=== PATIENT | female | born 1970 | race Two or more races ===

== ENCOUNTER 2016-10-16 17:26 | Emergency (ER) | payer SELFPAY ==
[~2016-10-16] VITALS: Ht 162.6 cm; Wt 77.1 kg
[2016-10-16 17:39] VITALS: BP 106/67
--- NOTE | 2016-10-16 18:08 | Emergency Room Report ---
History of Present Illness General Chief Complaint: Skin Rash/Abscess Source: Patient Present Illness HPI 46-year-old female presents emergency department complaining of multiple insect bites on the inner left thigh and upper or right extremity x2 days. Patient reports itching in addition to burning and progression of pain. Patient states there is now a significant redness surrounding the lesions. Patient denies nausea vomiting fevers or chills. Patient denies recent travel or ill contacts. Patient is up-to-date with tetanus. Denies CP, Palpitations, LOC, AMS, dizziness, Changes in Vision, Sensation, paresthesias, or a sudden severe headache. Allergies: Coded Allergies: No Known Allergies (Unverified , 10/16/16) Patient History Past Medical History: see triage record Past Surgical History: none Pertinent Family History: none Now: No Immunizations: UTD Reviewed Nursing Documentation: PMH: Agreed, PSxH: Agreed Nursing Documentation-PMH Past Medical History: No Stated History Review of Systems All Other Systems: negative except mentioned in HPI Physical Exam Vital Signs Date Time Temp Pulse Resp B/P Pulse Ox O2 Delivery O2 Flow Rate FiO2 10/16/16 17:39 98.2 93 20 106/67 99 Room Air Sp02 EP Interpretation: reviewed, normal General Appearance: no apparent distress, alert, GCS 15, non-toxic Head: normocephalic, atraumatic Eyes: bilateral eye PERRL, bilateral eye normal inspection ENT: hearing grossly normal, normal pharynx, no angioedema, normal voice Neck: full range of motion, supple/symm/no masses Respiratory: chest non-tender, lungs clear, normal breath sounds, speaking full sentences Cardiovascular #1: regular rate, rhythm, no edema Musculoskeletal: back normal, gait/station normal, normal range of motion, non- tender Neurologic: alert, oriented x3, responsive, motor strength/tone normal, sensory intact, speech normal Psychiatric: judgement/insight normal, memory normal, mood/affect normal, no suicidal/homicidal ideation Skin: normal color, warm/dry, well hydrated, rash - multiple lesions less than 0.5cm each on the inner left thigh and upper right extremity, significant surrounding erythema and increased temperature to palpation of the inner thigh consistent with insect bites, localized reaction, and secondary cellulitis Lymphatic: no adenopathy Medical Decision Making PA Attestation Dr. Stacy is my supervising Physician whom patient management has been discussed with. Diagnostic Impression: Primary Impression: Insect bites of multiple sites, infected Additional Impression: Cellulitis Qualified Codes: L03.116 - Cellulitis of left lower limb ER Course Pt. presents to the ED c/o pain, swelling, and erythema of multiple sites of the left inner thigh, and right upper arm. no fevers or chills. Ddx considered but are not limited to cellulitis, insect bites, abscess, scabies. Vital signs: are WNL, pt. is afebrile H&PE are most consistent with insect bites with secondary cellulitis. ORDERS: none required at this time, the diagnosis is clinical ED INTERVENTIONS: -650mg tylenol PO DISCHARGE: At this time pt. is stable for d/c to home. Will provide printed patient care instructions, and any necessary prescriptions. Care plan and follow up instructions have been discussed with the patient prior to discharge. Last Vital Signs Date Time Temp Pulse Resp B/P Pulse Ox O2 Delivery O2 Flow Rate FiO2 10/16/16 17:39 98.2 93 20 106/67 99 Room Air Disposition: HOME, SELF-CARE Condition: Stable Scripts Hydrocortisone 2% Cream (ANTI-ITCH 2% CREAM) Y Cr 1 APPLIC TP BID, #28 GM Prov: Shawnee Ca 10/16/16 Diphenhydramine Hcl* (BENADRYL*) 25 Mg Capsule 25 MG ORAL Q6H Y for Itching, #30 CAP Prov: Shawnee Ca 10/16/16 Cephalexin* (KEFLEX*) 500 Mg Capsule 500 MG ORAL EVERY 12 HOURS for 7 Days, #14 CAP 0 Refills Prov: Shawnee Ca 10/16/16 Patient Instructions: Bedbugs, [id number], Cellulitis, [id number] Additional Instructions: Take medications as directed. Follow up with PCP in 3-5 days Return sooner to ED if new symptoms occur, or current symptoms become worse. - Please note that this Emergency Department Report was dictated using [employer] software, occasionally this can lead to erroneous entry secondary to interpretation by the dictation equipment. Shawnee Ca Oct 16, 2016 18:08
[2016-10-16] MEDS ORDERED: CEPHALEXIN500 MG ORAL (18:10)
[2016-10-16] MEDS ORDERED: BENADRYL25 MG ORAL (18:10)
[2016-10-16] MEDS ORDERED: ANTI-ITCH28 G1 TP (18:10)
[2016-10-16 18:19] VITALS: BP 106/70
== END 2016-10-16 18:20 | disposition home or self-care (01) ==
LOC: EMR 18:15
DX: S70.362A Insect bite (nonvenomous), left thigh, initial encounter (principal); S40.861A Insect bite (nonvenomous) of right upper arm, initial encounter; W57.XXXA Bitten or stung by nonvenomous insect and other nonvenomous arthropods, initial encounter; Y93.9 Activity, unspecified; Y92.9 Unspecified place or not applicable; L03.116 Cellulitis of left lower limb
CPT/HCPCS: 99284